=== PATIENT | male | born 1965 | race Two or more races ===

== ENCOUNTER 2023-01-27 12:14 | Observation (INO) | payer OTHER ==
[2023-01-27 12:25] VITALS: BMI 21.7
[2023-01-27 14:12] LABS: HEMATOCRIT 37.1 % (35.4-49); HEMOGLOBIN 11.9 GM/dL (11.7-16.9); MCH 29.1 pg (25.7-33.7); MCHC 32.2 g/dl (32.0-35.9); MEAN CELL VOLUME 90.4 fl (80-96); MEAN PLT VOLUME 8.7 fl (7.5-11.1); PLATELET COUNT 177 10^3/uL (134-434); RBC 4.11 M/mm3 (4.00-5.60); WHITE BLOOD COUNT 8.1 K/mm3 (4.0-10.0)
[2023-01-27 14:32] LABS: POTASSIUM 4.2 mmol/L (3.5-5.1)
[2023-01-27 14:35] LABS: ALBUMIN 3.4 g/dl (3.4-5.0); BLOOD UREA NITROGEN 11.8 mg/dL (7-18); CALCIUM 8.7 mg/dL (8.5-10.1)
[2023-01-27 14:38] LABS: CREATININE 0.8 mg/dL (0.55-1.3)
[2023-01-27 14:40] LABS: TOT PROT 6.8 g/dl (6.4-8.2)
[2023-01-27 14:46] LABS: BILIRUBIN,TOTAL 0.2 mg/dL (0.2-1)
[2023-01-27 15:18] LABS: PHENCYCLIDINE,URINE NEGATIVE (NEGATIVE); URINE BARBITURATES NEGATIVE (NEGATIVE); URINE BENZODIAZEPINES NEGATIVE (NEGATIVE)
[2023-01-27 15:19] LABS: COCAINE, UR NEGATIVE (NEGATIVE); URINE AMPHETAMINES NEGATIVE (NEGATIVE)
[2023-01-27 15:22] LABS: METHADONE, UR POSITIVE (NEGATIVE); OPIATES, URI POSITIVE (NEGATIVE)
[2023-01-28] MEDS ORDERED: methaDONE HCL 10 MG TABLET PO ONE (09:18)
[2023-01-28] MEDS ORDERED: methaDONE HCL 40 MG DISPERSABLE TABLET ONE (09:43)
[2023-01-28] MEDS ORDERED: methaDONE HCL 10 MG TABLET ONE (09:43)
[2023-01-28] MEDS ORDERED: QUEtiapine FUMARATE 50 MG TABLET PO ONE (11:23)
[2023-01-28] MEDS ORDERED: SERTRALINE HCL 50 MG TABLET (FP) ONE (11:44)
[2023-01-29] MEDS ORDERED: HALOPERIDOL LACTATE 5 MG/ML IM ONE (06:34)
[2023-01-29] MEDS ORDERED: HALOPERIDOL LACTATE 5 MG/ML ONE (06:38)
[2023-01-29 06:42] LABS: HEMATOCRIT 38.8 % (35.4-49); HEMOGLOBIN 12.7 GM/dL (11.7-16.9); MCH 29.2 pg (25.7-33.7); MCHC 32.8 g/dl (32.0-35.9); MEAN PLT VOLUME 8.5 fl (7.5-11.1); PLATELET COUNT 203 10^3/uL (134-434); RBC 4.36 M/mm3 (4.00-5.60); RDW 15.1 % (11.9-15.9); WHITE BLOOD COUNT 7.9 K/mm3 (4.0-10.0)
[2023-01-29] MEDS ORDERED: LORazepam 2 MG/ML SDV VIAL IM ONE (06:45)
[2023-01-29 07:01] LABS: POTASSIUM 4.4 mmol/L (3.5-5.1)
[2023-01-29 07:14] LABS: CALCIUM 8.7 mg/dL (8.5-10.1)
[2023-01-29 07:15] LABS: ALBUMIN 3.3 g/dl (3.4-5.0); CREATININE 0.9 mg/dL (0.55-1.3)
[2023-01-29 07:15] LABS: PH,URINE 6.5 (5.0-8.0); URINE APPEARANCE CLEAR; URINE BILIRUBIN NEGATIVE (NEGATIVE); URINE COLOR YELLOW; URINE GLUCOSE (UA) NEGATIVE (NEGATIVE); URINE KETONE NEGATIVE (NEGATIVE); URINE LEUK ESTERASE NEGATIVE (NEGATIVE); URINE NITRITE NEGATIVE (NEGATIVE); URINE PROTEIN NEGATIVE (NEGATIVE); URINE UROBILINOGEN 0.2 mg/dL (0.2-1.0)
[2023-01-29 07:16] LABS: BILIRUBIN,TOTAL 0.3 mg/dL (0.2-1); TOT PROT 6.5 g/dl (6.4-8.2)
[2023-01-29] MEDS ORDERED: ENOXAPARIN NA (PORCINE) 40 MG/0.4 ML DISP.SYRIN SQ SCH (10:00)
[2023-01-29] MEDS ORDERED: methaDONE HCL 10 MG TABLET (FOR DETOX USE ONLY) PO SCH (11:00)
[2023-01-29] MEDS ORDERED: methaDONE 80 MG, methaDONE 10 MG PO SCH (11:00)
[2023-01-29] MEDS ORDERED: methaDONE HCL 40 MG DISPERSABLE TABLET ONE (11:01)
[2023-01-29] MEDS ORDERED: methaDONE HCL 10 MG TABLET ONE (11:02)
[2023-01-29] MEDS ORDERED: ENOXAPARIN NA (PORCINE) 40 MG/0.4 ML DISP.SYRIN SQ ONE (11:02)
[2023-01-29 11:38] VITALS: BP 123/81; PULSE 63; RESP 18; TEMP 97.2
[2023-01-29] MEDS ORDERED: NICOTINE 21 MG/24 HOURS TOPICAL PATCH TD SCH (13:15)
[2023-01-29] MEDS ORDERED: NICOTINE 21 MG/24 HOURS TOPICAL PATCH ONE (14:04)
== END 2023-01-29 18:30 | disposition short-term general hospital (02) ==
LOC: JER 12:14 → JERBED 01-28 20:04
PROVIDERS: ADMIT Internal Medicine; ATTEND Internal Medicine
PROC: 3E023GC Introduction of Other Therapeutic Substance into Muscle, Percutaneous Approach (ICD-10-PCS; principal; 2023-01-28)
PROC: 3E033NZ Introduction of Analgesics, Hypnotics, Sedatives into Peripheral Vein, Percutaneous Approach (ICD-10-PCS; 2023-01-28)
DX: F25.9 Schizoaffective disorder, unspecified (principal); F19.99 Other psychoactive substance use, unspecified with unspecified psychoactive substance-induced disorder; F31.9 Bipolar disorder, unspecified; R45.851 Suicidal ideations; F17.210 Nicotine dependence, cigarettes, uncomplicated
CPT/HCPCS: 36415; 80053; 80178; 80307; 81003; 84443; 85027; 87635; 93005; 93010; 99285-25; G0378